=== PATIENT | male | born 1965 | race Two or more races ===

== ENCOUNTER 2023-06-14 18:37 | Emergency (ER) | payer OTHER ==
[~2023-06-14] VITALS: Ht 190.5 cm; Wt 137.9 kg
[2023-06-14] MEDS ORDERED: TIROSINT50 MCG PO (18:50)
[2023-06-14] MEDS ORDERED: GLUMETZA500 MG PO (18:50)
[2023-06-14] MEDS ORDERED: DIOVAN160 M1 PO (18:50)
[2023-06-14] MEDS ORDERED: DICLOFENAC SODI75 MG PO (21:16)
== END 2023-06-14 23:01 | disposition home or self-care (01) ==
LOC: ER 18:37
DX: M94.0 Chondrocostal junction syndrome [Tietze] (principal)
CPT/HCPCS: 36415; 93005; 96372; 99284; J1885